=== PATIENT | male | born 2000 | race American Indian/Alaskan Native ===

== ENCOUNTER 2024-11-13 04:56 | Emergency (ER) | payer OTHER ==
[~2024-11-13] VITALS: Ht 180.3 cm; Wt 110.0 kg
[2024-11-13 05:38] VITALS: BP 134/79
== END 2024-11-13 05:39 | disposition home or self-care (01) ==
LOC: ED 04:56
DX: S01.01XA Laceration without foreign body of scalp, initial encounter (principal); Y04.0XXA Assault by unarmed brawl or fight, initial encounter
CPT/HCPCS: 12002; 99283